=== PATIENT | female | born 1995 | race Native Hawaiian/Other Pacific Islander ===

== ENCOUNTER 2022-04-23 12:34 | Emergency (ER) | payer SELFPAY ==
[~2022-04-23] VITALS: Ht 177 cm; Wt 118.0 kg
[2022-04-23 14:04] LABS: BASOPHILS % (AUTO) 0 % (0-10); EOSINOPHILS # (AUTO) 0.1 10^3/uL (0.0-0.3); EOSINOPHILS % (AUTO) 1 % (0-10); HEMATOCRIT 41 % (35-52); HEMOGLOBIN 13.8 g/dL (11.5-16.0); LYMPHOCYTES % (AUTO) 27 % (12-44); MEAN CORPUSCULAR HEMOGLOBIN 30 pg (25-34); MEAN CORPUSCULAR HGB CONC 34 g/dL (32-36); MEAN CORPUSCULAR VOLUME 89 fL (80-99); MEAN PLATELET VOLUME 11.1 fL (9.0-12.2); MONOCYTES # (AUTO) 0.7 10^3/uL (0.0-1.0); MONOCYTES % (AUTO) 9 % (0-12); NEUTROPHILS # (AUTO) 4.7 10^3/uL (1.8-7.8); NEUTROPHILS % (AUTO) 62 % (42-75); PLATELET COUNT 179 10^3/uL (130-400); WHITE BLOOD COUNT 7.5 10^3/uL (4.3-11.0)
[2022-04-23 14:05] LABS: BILIRUBIN,URINE NEGATIVE (NEGATIVE); CLARITY,URINE CLEAR; COLOR,URINE YELLOW; GLUCOSE, URINE (UA) NEGATIVE (NEGATIVE); KETONES,URINE NEGATIVE (NEGATIVE); LEUKOCYTE ESTERASE ,URINE TRACE (NEGATIVE); NITRITE,URINE NEGATIVE (NEGATIVE); PH,URINE 6.5 (5-9); PROTEIN,URINE NEGATIVE (NEGATIVE)
[2022-04-23 14:11] LABS: BACTERIA,URINE MODERATE /HPF; SQUAMOUS EPITHELIAL CELL,UR 0-2 /HPF
[2022-04-23 14:15] LABS: ALBUMIN 3.7 GM/DL (3.2-4.5); POTASSIUM 3.9 MMOL/L (3.6-5.0)
[2022-04-23] MEDS ORDERED: IOHEXOL 350 MG/ML 100 ML (OMNIPAQUE 350) VIAL IV ONE (14:15)
[2022-04-23] MEDS ORDERED: NS 100 ML (IVPB) BAG IV ONE (14:15)
[2022-04-23] MEDS ORDERED: HOLD METFORMIN - RECEIVED CONTRAST 20 ML VIAL IV SCH (14:15)
[2022-04-23 14:16] LABS: CALCIUM 8.6 MG/DL (8.5-10.1)
[2022-04-23 14:19] LABS: BILIRUBIN,TOTAL 0.4 MG/DL (0.1-1.0)
[2022-04-23 14:21] LABS: CREATININE SERUM 0.69 MG/DL (0.60-1.30)
--- NOTE | 2022-04-23 14:42 | Diagnostic Imaging Report ---
PROCEDURE: CT abdomen and pelvis with contrast. TECHNIQUE: Multiple contiguous axial images were obtained through the abdomen and pelvis after administration of intravenous contrast. Auto Exposure Controls were utilized during the CT exam to meet ALARA standards for radiation dose reduction. All CT scans use one or more of the following dose optimizing techniques: automated exposure control, MA and/or KvP adjustment based on patient size and exam type or iterative reconstruction. INDICATION: 26-year-old female, abdominal pain x1 week. Blood in stools today. CORRELATION STUDY: None. FINDINGS: LOWER THORAX: Clear. LIVER: Unremarkable. GALLBLADDER: Mildly contracted likely resulting in mild gallbladder wall thickening. No overt bile ductal dilatation. SPLEEN: Unremarkable small adjacent splenules. PANCREAS: Unremarkable. ADRENAL GLANDS: Unremarkable. KIDNEYS: Normal configuration. No calcification or obstruction. ABDOMINAL AORTA: Unremarkable, nonaneurysmal. A few shotty aortocaval lymph nodes. GASTROINTESTINAL TRACT: Stomach mildly distended with retained gastric contents and fluid. No small bowel obstruction. There is very mild stool in the proximal colon. The distal colon largely decompressed. Normal appendix. No abdominal ascites and/or free air URINARY BLADDER: . REPRODUCTIVE: Uterus and adnexa unremarkable. OSSEOUS STRUCTURES: No acute abnormality. OTHER: None. IMPRESSION: 1. Negative for acute abnormality of the abdomen or pelvis. Dictated by: Dictated on workstation # [id number]
--- NOTE | 2022-04-23 14:53 | ED GI ---
General Chief Complaint: Abdominal/GI Problems Stated Complaint: ABDOMINAL PAIN BLOODY STOOL Nursing Triage Note: AMBULATED TO ROOM WITH COMPLAINTS OF LOWER ABD PAIN X1 WEEK. WORSE TODAY AND HAVE HAD BLOODY STOOLS TODAY. Source of Information: Patient Exam Limitations: No Limitations History of Present Illness Date Seen by Provider: Apr 24, 2022 Time Seen by Provider: 13:00 Initial Comments Patient is a 26-year-old female who presents to the emergency department for evaluation of 1 week of lower abdominal pain as well as a single bloody stool today. Patient states there was a mix of bright red and dark red in the stool. She denies any rectal pain. Denies any history of bloody stools in the past. No nausea/vomiting. States the pain is mild and crampy in nature. She states it is worse when she feels her just a bowel movement. No history of coagulopathies or bleeding diatheses. Allergies and Home Medications Allergies Coded Allergies: No Known Drug Allergies (Unverified , 04/23/22) Patient Home Medication List Home Medication List Reviewed: Yes Review of Systems Review of Systems Constitutional: no symptoms reported EENTM: No Symptoms Reported Respiratory: No Symptoms Reported Cardiovascular: No Symptoms Reported Gastrointestinal: See HPI, Abdominal Pain, Blood Streaked Stools Genitourinary: No Symptoms Reported Musculoskeletal: no symptoms reported Skin: no symptoms reported Psychiatric/Neurological: No Symptoms Reported Endocrine: No Symptoms Reported Hematologic/Lymphatic: No Symptoms Reported Past Swaaevw-Fjhpal-Hbprcs Hx Patient Social History Tobacco Use?: No Substance use?: No Alcohol Use?: Yes Alcohol Frequency: Once in a while Past Medical History Last Menstrual Period: Apr 02, 2022 Physical Exam Vital Signs Vital Signs - First Documented 04/23/22 12:45 Temp 36.8 Pulse 69 Resp 16 B/P (MAP) 146/89 (108) Pulse Ox 98 O2 Delivery Room Air Capillary Refill : Less Than 3 Seconds Height/Weight/BMI Height: '" Weight: lbs. oz. kg; 37.00 BMI Method: General Appearance: WD/WN, no apparent distress HEENT: PERRL/EOMI, normal ENT inspection, TMs normal, pharynx normal Neck: non-tender, full range of motion, supple, normal inspection Respiratory: chest non-tender, lungs clear, normal breath sounds, no respiratory distress, no accessory muscle use Cardiovascular: regular rate, rhythm Gastrointestinal: normal bowel sounds, non tender, soft Neurologic/Psychiatric: no motor/sensory deficits, alert, normal mood/affect, oriented x 3 Skin: normal color, warm/dry Progress/Results/Core Measures Results/Orders Lab Results Laboratory Tests Test 04/23/22 13:50 04/23/22 13:56 Range/Units White Blood Count 7.5 4.3-11.0 10^3/uL Red Blood Count 4.63 3.80-5.11 10^6/uL Hemoglobin 13.8 11.5-16.0 g/dL Hematocrit 41 35-52 % Mean Corpuscular Volume 89 80-99 fL Mean Corpuscular Hemoglobin 30 25-34 pg Mean Corpuscular Hemoglobin Concent 34 32-36 g/dL Red Cell Distribution Width 11.9 10.0-14.5 % Platelet Count 179 130-400 10^3/uL Mean Platelet Volume 11.1 9.0-12.2 fL Immature Granulocyte % (Auto) 0 % Neutrophils (%) (Auto) 62 42-75 % Lymphocytes (%) (Auto) 27 12-44 % Monocytes (%) (Auto) 9 0-12 % Eosinophils (%) (Auto) 1 0-10 % Basophils (%) (Auto) 0 0-10 % Neutrophils # (Auto) 4.7 1.8-7.8 10^3/uL Lymphocytes # (Auto) 2.0 1.0-4.0 10^3/uL Monocytes # (Auto) 0.7 0.0-1.0 10^3/uL Eosinophils # (Auto) 0.1 0.0-0.3 10^3/uL Basophils # (Auto) 0.0 0.0-0.1 10^3/uL Immature Granulocyte # (Auto) 0.0 0.0-0.1 10^3/uL Sodium Level 138 135-145 MMOL/L Potassium Level 3.9 3.6-5.0 MMOL/L Chloride Level 106 98-107 MMOL/L Carbon Dioxide Level 23 21-32 MMOL/L Anion Gap 9 5-14 MMOL/L Blood Urea Nitrogen 12 7-18 MG/DL Creatinine 0.69 0.60-1.30 MG/DL Estimat Glomerular Filtration Rate 121 BUN/Creatinine Ratio 17 Glucose Level 95 70-105 MG/DL Calcium Level 8.6 8.5-10.1 MG/DL Corrected Calcium 8.8 8.5-10.1 MG/DL Total Bilirubin 0.4 0.1-1.0 MG/DL Aspartate Amino Transf (AST/SGOT) 15 5-34 U/L Alanine Aminotransferase (ALT/SGPT) 14 0-55 U/L Alkaline Phosphatase 65 40-136 U/L Total Protein 7.0 6.4-8.2 GM/DL Albumin 3.7 3.2-4.5 GM/DL Serum Test, Qualitative NEGATIVE NEGATIVE Urine Color YELLOW Urine Clarity CLEAR Urine pH 6.5 5-9 Urine Specific [place] 1.020 1.016-1.022 Urine Protein NEGATIVE NEGATIVE Urine Glucose (UA) NEGATIVE NEGATIVE Urine Ketones NEGATIVE NEGATIVE Urine Nitrite NEGATIVE NEGATIVE Urine Bilirubin NEGATIVE NEGATIVE Urine Urobilinogen 0.2 < = 1.0 MG/DL Urine Leukocyte Esterase TRACE H NEGATIVE Urine RBC (Auto) 3+ H NEGATIVE Urine RBC NONE /HPF Urine WBC 2-5 /HPF Urine Squamous Epithelial Cells 0-2 /HPF Urine Renal Epithelial Cells NONE /HPF Urine Crystals NONE /LPF Urine Bacteria MODERATE H /HPF Urine Casts NONE /LPF Urine Mucus NEGATIVE /LPF Urine Culture Indicated YES My Orders Orders - DELLA SUMMERS E TAILER Cbc With Automated Diff (04/23/22 13:44) Comprehensive Metabolic Panel (04/23/22 13:44) Iv/Invasive Line Insertion .IV INSERT (04/23/22 13:44) Ct Abdomen/Pelvis W (04/23/22 13:44) Ua Culture If Indicated (04/23/22 13:44) Hcg,Qualitative Serum (04/23/22 13:44) Iohexol Injection (Omnipaque 350 Mg/Ml 1 (04/23/22 14:15) Received Contrast (Hold Metformin- Contr (04/23/22 14:15) Ns (Ivpb) (Sodium Chloride 0.9% Ivpb Bag (04/23/22 14:15) Urine Culture (04/23/22 13:56) Medications Given in ED Vital Signs/I&O 04/23/22 04/23/22 12:45 15:05 Temp 36.8 Pulse 69 68 Resp 16 B/P (MAP) 146/89 (108) 118/73 Pulse Ox 98 100 O2 Delivery Room Air Blood Pressure Mean: 108 Progress Progress Note : Progress Note Patient is nontoxic and well-hydrated on exam. Abdominal exam is reassuring without focal provocation of pain or rigidity/distention. Vital signs are re assuring. Laboratory evaluation is unremarkable. CT of the abdomen pelvis reveals no acute abnormality. Will discharge home with recommendations for supportive care and close follow-up with PCP/general surgery. I explained that she may need a colonoscopy in the near future for further evaluation if the bleeding continues. Return precautions for urgent symptomology discussed. Patient verbalized understanding. Departure Impression Primary Impression: Lower abdominal pain Additional Impression: Hematochezia Disposition: HOME, SELF-CARE Condition: Stable Departure-Patient Inst. Decision time for Depature: 14:50 Referrals: NO,LOCAL PHYSICIAN (PCP/Family) Primary Care Physician Patient Instructions: Abdominal Pain, Adult ED, Bloody Stools, Adult ED DELLA SUMMERS APRN Apr 23, 2022 14:53
[2022-04-23 15:05] VITALS: BP 118/73
== END 2022-04-23 15:06 | disposition home or self-care (01) ==
LOC: ER 12:37
DX: K92.1 Melena (principal); R10.30 Lower abdominal pain, unspecified; Z32.02 Encounter for pregnancy test, result negative; Z28.310 Unvaccinated for COVID-19
CPT/HCPCS: 36415; 74177; 80053; 81000; 84703; 85025; 87088

== ENCOUNTER 2022-07-13 21:02 | Emergency (ER) | payer SELFPAY ==
[2022-07-13] MEDS ORDERED: ONDANSETRON 4 MG/2 ML (SDV) Z0FRAN IVP ONE (21:45)
[2022-07-13] MEDS ORDERED: morphine INJ 10 MG/ML 1ML (SYR OR VIAL) IVP STA (21:45)
[2022-07-13 21:52] LABS: BASOPHILS % (AUTO) 0 % (0-10); EOSINOPHILS % (AUTO) 0 % (0-10); HEMATOCRIT 43 % (35-52); HEMOGLOBIN 14.7 g/dL (11.5-16.0); LYMPHOCYTES # (AUTO) 1.6 10^3/uL (1.0-4.0); LYMPHOCYTES % (AUTO) 12 % (12-44); MEAN CORPUSCULAR HEMOGLOBIN 30 pg (25-34); MEAN CORPUSCULAR HGB CONC 34 g/dL (32-36); MEAN CORPUSCULAR VOLUME 87 fL (80-99); MEAN PLATELET VOLUME 11.3 fL (9.0-12.2); MONOCYTES # (AUTO) 0.7 10^3/uL (0.0-1.0); MONOCYTES % (AUTO) 5 % (0-12); NEUTROPHILS # (AUTO) 11.3 10^3/uL (1.8-7.8); NEUTROPHILS % (AUTO) 83 % (42-75); PLATELET COUNT 214 10^3/uL (130-400); WHITE BLOOD COUNT 13.7 10^3/uL (4.3-11.0)
--- NOTE | 2022-07-13 21:54 | ED Abdominal Pain ---
General Chief Complaint: Abdominal/GI Problems Stated Complaint: ABDOMINAL PAIN Nursing Triage Note: PT AMB TO RM 7 WITH CC OF R UPPER ABD PAIN SINCE THIS PM. PT STATES SHE HAS HX OF GALLBLADDER ATTACK AND BELIEVES SHE IS HAVING ONE TONIGHT BUT PAIN HAS INCREASED. PT C/O NAUSEA AND VOMITING. Source of Information: Patient Exam Limitations: No Limitations History of Present Illness Date Seen by Provider: Jul 13, 2022 Time Seen by Provider: 21:24 Initial Comments 27-year-old female presents to the emergency department today for right upper quadrant abdominal pain. Symptoms have been present for 3 hours now. She believes it to be gallbladder attack. She had her gallbladder evaluated about 5 years ago. She reports a severe schedule to be removed. 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 She has had maybe a "handful" of gallbladder attacks since that time but has not really been too bothersome. They are usually relieved with ibuprofen. She describes her current pain is 8/10 and severe. She tried Tylenol and ibuprofen without any relief. It is also lasted longer than her typical attacks would. It is described as present in the right upper quadrant with radiation to her mid back. No obvious aggravating or alleviating factors and it has been constant since onset. No fevers chills nausea or vomiting. No changes in her bowels. No vaginal symptoms. No urinary symptoms. Last menstrual cycle was the beginning of last month and normal for her. Allergies and Home Medications Allergies Coded Allergies: No Known Drug Allergies (Unverified , 04/23/22) Patient Home Medication List Home Medication List Reviewed: Yes Hydrocodone/Acetaminophen (Hydrocodone-Acetamin 5-325 mg) 5 Mg-325 Mg Tablet, 1 TAB PO Q4H PRN for PAIN-MODERATE (5-7) Prescribed by: JORDAN FRANCO MD on 07/13/222240 Ondansetron (Ondansetron Odt) 8 Mg Tab.rapdis, 8 MG SL Q6H PRN for NAUSEA/VOMITING Prescribed by: JORDAN FRANCO MD on 07/13/222239 Review of Systems Review of Systems Constitutional: no symptoms reported EENTM: No Symptoms Reported Respiratory: No Symptoms Reported Cardiovascular: No Symptoms Reported Gastrointestinal: Abdominal Pain Genitourinary: No Symptoms Reported Musculoskeletal: no symptoms reported Skin: no symptoms reported Psychiatric/Neurological: No Symptoms Reported Endocrine: No Symptoms Reported Hematologic/Lymphatic: No Symptoms Reported Past Xzjxodu-Fsieih-Uplehc Hx Patient Social History Tobacco Use?: No Substance use?: No Alcohol Use?: No Pt feels they are or have been: No Immunizations Up To Date Influenza Vaccine Up-to-Date: No; Not Current Family Medical History Reviewed Nursing Family Hx No Pertinent Family Hx Physical Exam Vital Signs Vital Signs - First Documented 07/13/22 21:26 Temp 36.8 Pulse 82 Resp 20 B/P (MAP) 127/74 (91) Pulse Ox 99 O2 Delivery Room Air Capillary Refill : Less Than 3 Seconds Height/Weight/BMI Height: '" Weight: lbs. oz. kg; 37.00 BMI Method: General Appearance: WD/WN, no apparent distress HEENT: normal ENT inspection, pharynx normal Neck: non-tender, full range of motion, supple, normal inspection Respiratory: chest non-tender, lungs clear, normal breath sounds, no respiratory distress, no accessory muscle use Cardiovascular: regular rate, rhythm, no murmur Gastrointestinal: normal bowel sounds, soft, no organomegaly, tenderness (Tenderness palpation of the "oncology guarding. No rebound tenderness. No mass organomegaly. No skin changes.) Extremities: normal range of motion, non-tender, normal inspection, no pedal edema, no calf tenderness, normal capillary refill Neurologic/Psychiatric: alert, normal mood/affect, oriented x 3 Skin: normal color, warm/dry Progress/Results/Core Measures Results/Orders Lab Results Laboratory Tests Test 07/13/22 21:34 Range/Units White Blood Count 13.7 H 4.3-11.0 10^3/uL Red Blood Count 4.93 3.80-5.11 10^6/uL Hemoglobin 14.7 11.5-16.0 g/dL Hematocrit 43 35-52 % Mean Corpuscular Volume 87 80-99 fL Mean Corpuscular Hemoglobin 30 25-34 pg Mean Corpuscular Hemoglobin Concent 34 32-36 g/dL Red Cell Distribution Width 12.1 10.0-14.5 % Platelet Count 214 130-400 10^3/uL Mean Platelet Volume 11.3 9.0-12.2 fL Immature Granulocyte % (Auto) 0 % Neutrophils (%) (Auto) 83 H 42-75 % Lymphocytes (%) (Auto) 12 12-44 % Monocytes (%) (Auto) 5 0-12 % Eosinophils (%) (Auto) 0 0-10 % Basophils (%) (Auto) 0 0-10 % Neutrophils # (Auto) 11.3 H 1.8-7.8 10^3/uL Lymphocytes # (Auto) 1.6 1.0-4.0 10^3/uL Monocytes # (Auto) 0.7 0.0-1.0 10^3/uL Eosinophils # (Auto) 0.0 0.0-0.3 10^3/uL Basophils # (Auto) 0.0 0.0-0.1 10^3/uL Immature Granulocyte # (Auto) 0.0 0.0-0.1 10^3/uL Sodium Level 137 135-145 MMOL/L Potassium Level 3.6 3.6-5.0 MMOL/L Chloride Level 105 98-107 MMOL/L Carbon Dioxide Level 23 21-32 MMOL/L Anion Gap 9 5-14 MMOL/L Blood Urea Nitrogen 10 7-18 MG/DL Creatinine 0.77 0.60-1.30 MG/DL Estimat Glomerular Filtration Rate 107 BUN/Creatinine Ratio 13 Glucose Level 141 H 70-105 MG/DL Calcium Level 8.7 8.5-10.1 MG/DL Corrected Calcium 8.7 8.5-10.1 MG/DL Total Bilirubin 1.1 H 0.1-1.0 MG/DL Aspartate Amino Transf (AST/SGOT) 199 H 5-34 U/L Alanine Aminotransferase (ALT/SGPT) 95 H 0-55 U/L Alkaline Phosphatase 96 40-136 U/L Total Protein 7.6 6.4-8.2 GM/DL Albumin 4.0 3.2-4.5 GM/DL Lipase 24 8-78 U/L Serum Test, Qualitative NEGATIVE NEGATIVE My Orders Orders - SALVADORJORDAN Valentine DO Lipase (07/13/22 21:45) Cbc With Automated Diff (07/13/22 21:45) Comprehensive Metabolic Panel (07/13/22 21:45) Hcg,Qualitative Serum (07/13/22 21:45) Morphine Injection (Morphine Injection (07/13/22 21:45) Ondansetron Injection (Zofran Injectio (07/13/22 21:45) Medications Given in ED Current Medications Medications Dose Ordered Sig/Kayleigh Route Start Time Stop Time Status Last Admin Dose Admin Ondansetron HCl 8 mg ONCE ONCE IVP 07/13/22 21:45 07/13/22 21:46 DC 07/13/22 21:51 8 MG Vital Signs/I&O 07/13/22 07/13/22 21:26 22:53 Temp 36.8 Pulse 82 85 Resp 20 20 B/P (MAP) 127/74 (91) 129/59 Pulse Ox 99 99 O2 Delivery Room Air Room Air Blood Pressure Mean: 91 Departure Communication (Admissions) Patient is hemodynamically stable. Symptoms are certainly consistent with biliary colic which she has had off-and-on for the last 5 years.Pain has completely resolved by her account with morphine. She does have very slight elevation in her LFTs, T. bili. She states this was present with the previous episode as well. White blood cell count is slightly elevated but she is afebrile, nontoxic and pain was acute onset this evening. [place] acute cholecystitis. We will give her close surgery follow-up, recommend calling Dr. Hebert's office in the morning. She states understanding. She is comfortable with discharge home. I will give her pain medication and nausea medicine to go home with. She was given with instructions on use. Impression Primary Impression: Biliary colic Additional Impression: Gall stones Disposition: HOME, SELF-CARE Condition: Stable Departure-Patient Inst. Referrals: CARLINE HEBERT MD NO,LOCAL PHYSICIAN (PCP) Primary Care Physician Patient Instructions: Gallstones (DC) Add. Discharge Instructions: Take the pain and nausea medicines as prescribed as needed. Pain medicine may make you drowsy so do not drive or make important decisions while taking it. It may also cause constipation so I recommend you use stool softeners. I do believe your pain is coming from your gallbladder. Your liver enzymes are slightly elevated. Recommend you call Dr. Hebert's office first thing in the morning to schedule follow-up appointment. Return to the emergency department for any fevers, inability to tolerate fluids or food or if your symptoms change in any way concerning to you. All discharge instructions reviewed with patient and/or family. Voiced understanding. Scripts Hydrocodone/Acetaminophen (Hydrocodone-Acetamin 5-325 mg) 5 Mg-325 Mg Tablet 1 TAB PO Q4H PRN for PAIN-MODERATE (5-7) for 3 Days, #12 TAB Prov: JORDAN FRANCO DO 07/13/22 Ondansetron (Ondansetron Odt) 8 Mg Tab.rapdis 8 MG SL Q6H PRN for NAUSEA/VOMITING for 3 Days, #12 TAB Prov: JORDAN FRANCO DO 07/13/22 JORDAN FRANCO DO Jul 13, 2022 21:54
[2022-07-13 22:06] LABS: BILIRUBIN,TOTAL 1.1 MG/DL (0.1-1.0); CALCIUM 8.7 MG/DL (8.5-10.1); CREATININE SERUM 0.77 MG/DL (0.60-1.30); POTASSIUM 3.6 MMOL/L (3.6-5.0); TOTAL PROTEIN 7.6 GM/DL (6.4-8.2)
[2022-07-13] MEDS ORDERED: ONDA8TAB13 SL (22:40)
[2022-07-13] MEDS ORDERED: ACHD5005 PO (22:40)
[2022-07-13 22:53] VITALS: BP 129/59
== END 2022-07-13 22:54 | disposition home or self-care (01) ==
LOC: EDUNIT# 21:02 → ER 21:04
DX: K80.60 Calculus of gallbladder and bile duct with cholecystitis, unspecified, without obstruction (principal); Z28.310 Unvaccinated for COVID-19
CPT/HCPCS: 36415; 80053; 83690; 84703; 85025; 99281